=== PATIENT | male | born 1975 | race Caucasian/White ===

== ENCOUNTER 2016-06-08 13:23 | Emergency (ER) | payer SELFPAY ==
[~2016-06-08 13:23] MED LIST: Lidocaine 1% 5ml(IM or SUTURE)(PAIN CLINIC) IJ ONE
[2016-06-08] MEDS ORDERED: DIPH,PERTUSS(ACELL),TET VAC/PF 0.5 ML DISP.SYRIN IM ONE (13:26)
[2016-06-08] MEDS ORDERED: Lidocaine 1% 5ml(IM or SUTURE)(PAIN CLINIC) ONE (13:26)
[2016-06-08] MEDS ORDERED: Lidocaine 1% 5ml(IM or SUTURE)(PAIN CLINIC) IJ ONE (13:36)
[2016-06-08] MEDS ORDERED: oxyCODONE/ACETAMINOPHEN 5/325 TABLET PO ONE (13:36)
--- NOTE | 2016-06-08 14:06 | ED Physician Documentation ---
Upper Extremity Injury - HISTORIAN Historian: patient - HPI Stated Complaint: Laceration to mid-Index finger Rt hand by skillsaw Chief Complaint: Hand Injury Additional Information: 40 yo M here for injury to R index finger, cutting it with a skill saw just prior to arrival. No previoous injury, unknown tetanus status. Was cutting door trim. All other systems reviwed and negative except per HPI. Onset: just prior to arrival Where: home Severity: moderate - ROS CONST: no problems CVS/RESP: none NEURO: none MS/SKIN/LYMPH: other (R hand pain) - PAST HX Past History: Rt handed Allergies/Adverse Reactions: Allergies Allergy/AdvReac Type Severity Reaction Status Date / Time No Known Drug Allergies Allergy Verified 06/08/16 13:32 Home Medications: Ambulatory Orders Medication Instructions Recorded NK [NK] 06/08/16 - SOCIAL HX Smoking History: cigarettes, greater than 1 pack/day Alcohol Use: none Drug Use: none - FAMILY HX Family History: none - VITAL SIGNS Vital Signs: Vital Signs Temp Pulse Resp BP Pulse Ox 83 18 127/71 98 06/08/16 13:23 06/08/16 13:23 06/08/16 13:23 06/08/16 13:23 - REVIEWED ASSESSMENTS Nursing Assessment Reviewed: Yes Vitals Reviewed: Yes ED Results Lab/Radiology - Radiology Radiology Impressions: R hand: Middle phalanx R index finger - Orders Orders: ED Orders Category Date Time Status FINGER 2 VIEWS OR MORE [RAD] Stat Exams 06/08/16 Completed Diph,Pertuss(Acell),Tet Vac/Pf [Adacel] Med 06/08/16 13:26 Discontinued 0.5 ml IM .ONCE ONE Lidocaine 1% 5ml(IM or SUTURE) [Xylocaine] Med 06/08/16 13:26 Discontinued 50 mg .ROUTE .STK-MED ONE Lidocaine 1% 5ml(IM or SUTURE) [Xylocaine] Med 06/08/16 13:23 Discontinued 50 mg IJ NOW ONE Lidocaine 1% 5ml(IM or SUTURE) [Xylocaine] Med 06/08/16 13:36 Discontinued 50 mg IJ NOW ONE oxyCODONE HCL/ACETAMINOPHEN [Percocet 5-325 mg Tablet] Med 06/08/16 13:36 Discontinued 1 each PO NOW ONE Upper Extremity Injury Physic - Physical Exam General Appearance: no acute distress, alert Hand: laceration (R index finger laceration, through flexor tendon, bone at DIP , near amputation. No sensation. Purple discoloration distally.) Wrist: normal inspection, non-tender, no evidence of injury Elbow/Forearm: normal inspection, non-tender, no evidence of injury Shoulder: normal inspection, non-tender, no evidence of injury Neuro/Vascular/Tendon: abnml color, sensory deficit, motor deficit. No: sensation nml Skin: cyanotic Head/ENT: pharynx nml Resp/CVS: chest non-tender, breath sounds nml, heart sounds nml, no resp. distress Abdomen: non-tender Discharge Clincal Impression: Near amputation of finger of right hand Referrals: Primary Doctor,No [Primary Care Provider] - 2 Days Home Medications: Ambulatory Orders NK [NK] 06/08/16 Comments: Spoke with hand/plastics at [place] initially, stated that if patient interested in possibly saving the finger then should call [facility]. Called [facility] plastics who accept patient in transfer to their ER. Condition: Good Disposition: 02 XFER [id number]-TRM HOSP Decision to Admit: NO Decision Time: 14:39
--- NOTE | 2016-06-08 14:35 | Diagnostic Imaging Report ---
YNES ARBOLEDA [facility] [address] [facility] [address] [address] Report Submission Date: Jun 08, 2016 1:57:33 PM DEVELOPMENT GEOLOGIST Patient Study Name: LAURA VALERA Date: Jun 08, 2016 1:40:45 PM DEVELOPMENT GEOLOGIST Modality Type: CR Gender: M Description: UPPER EXTREMITY : 73 Institution: [facility] Physician: YNES ARBOLEDA Right 2nd finger -three views CLINICAL HISTORY: Injury. Laceration. FINDINGS: Examination right 2nd finger in palmar, lateral and oblique views demonstrates a soft tissue injury in the 2nd finger adjacent to the middle phalanx with involvement of the 2nd middle phalangeal neck and apparent missing bony material. There are small bone fragments adjacent to the bony defect. There is no evidence of complete fracture. IMPRESSION: Soft tissue and bony injury at the level the neck of the 2nd middle phalanx with small bone fragments at the site of injury and apparent missing bony material. Electronically signed on Jun 08, 2016 1:57:33 PM DEVELOPMENT GEOLOGIST by: Zach LEMA
[2016-06-09 00:58] VITALS: BP 128/72
== END 2016-06-08 14:35 | disposition short-term general hospital (02) ==
LOC: ED 13:23
DX: S61.210A Laceration without foreign body of right index finger without damage to nail, initial encounter (principal); W29.8XXA Contact with other powered hand tools and household machinery, initial encounter; Y93.9 Activity, unspecified; Y99.9 Unspecified external cause status; F17.210 Nicotine dependence, cigarettes, uncomplicated
CPT/HCPCS: 73140; 90471; 99283; 99284

== ENCOUNTER → 2018-11-19 | Emergency (ER) | payer SELFPAY ==
[2016-06-09 00:58] VITALS: BP 128/72
[~2018-11-19] MED LIST changes: +0.9 % SODIUM CHLORIDE 100 ML IV ONE; +AMIODARONE HCL 150 MG/3ML VIAL ONE; +ATROPINE SULFATE 0.1 MG/ML DISP.SYRIN ONE; +EPINEPHrine 0.1 MG/ML DISP.SYRIN IVP ONE; +LACTATED RINGERS 1,000 ML IV ONE; -Lidocaine 1% 5ml(IM or SUTURE)(PAIN CLINIC) IJ ONE; +SODIUM BICARBONATE 50 MEQ/50 ML SYRINGE ONE
--- NOTE | 2018-11-19 23:56 | ED Physician Documentation ---
Cardiopulmonary Resuscitation - HISTORIAN Historian: paramedics - HPI Chief Complaint: CPR Witnessed Arrest?: No CPR Initiated Prior to MD Arrival?: Yes Down-Time before ACLS?: 0 (uncertain) Further Comments: yes (43 year old male patient brought in via EMS from work. Patient was found slumped over a piece of equipment at work. Bystander reports spontaneous respirations. On EMS arrival, patient in V Fib - defib x 5 on scene; epi x 2 doses in route, intubated with 7.0 ETT on scene.) - INITIAL FINDING Mentation: unresponsive Respirations: no respirations Pulse: absent Rhythm: V-Fib Glucose: 210 - TREATMENT INITIATED HEALTH OFFICER Oxygen: intubated CRP/Thumper: Yes Defibrillated X: 5 IV Access: Yes IV Fluids: Yes - MEDICATIONS GIVEN HEALTH OFFICER How Many Doses of Epinephrine?: 5 Vasopressin Given?: No How Many Doses of Atropine?: 0 Amiodorone Given?: No Sodium Bicarb Given?: No Lidocaine Given?: No - ROS CONST: none (unknown; after family arrived - denied any recent health problems. ) - PAST HX Past History: none (per sister) Allergies/Adverse Reactions: Allergies Allergy/AdvReac Type Severity Reaction Status Date / Time No Known Drug Allergies Allergy Verified 06/08/16 13:32 Home Medications: Ambulatory Orders Medication Instructions Recorded NK 06/08/16 - SOCIAL HX Smoking History: cigarettes - FAMILY HX Family History: No - VITAL SIGNS Vital Signs: Vital Signs Temp Pulse Resp BP Pulse Ox 128/72 06/09/16 00:55 - REVIEWED ASSESSMENTS Nursing Assessment Reviewed: Yes Vitals Reviewed: Yes Progress - Progress Progress: See Code documentation. 0 Family arrived - updated sister and family on critical status and poor prognosis Time of 1909 - PEA remains, no pulse, no respirations. Family updated. Family would like patient to be organ donor. Chest Pain Physical Exam - EXAM General Appearance: other (cardiac arrent) EENT: other (pupils fixed and dilated) Respiratory: other (intubated with 7.0 ETT; 24 at lip; BBS clear) CVS: other (initial rhythm - V Fib) Abdomen: soft, decreased BS Skin: cyanosis (severe cyanosis from nipple line caudally. ) Extremities: no evidence of injury Neuro: other (unresponsive) Discharge Clincal Impression: Cardiac arrest Referrals: Primary Doctor,No [Primary Care Provider] - 2 Days Disposition: 20 Decision to Admit: NO Decision Time: 19:10
== END | disposition expired ==
LOC: ED 18:29
DX: I46.9 Cardiac arrest, cause unspecified (principal)
CPT/HCPCS: 36600; 82803; 99282